=== PATIENT | female | born 1945 | race Two or more races ===

== ENCOUNTER 2017-07-27 11:45 | Outpatient (CLI) | payer OTHER | END 2017-07-27 14:23 | disposition home or self-care (01) | LOC: MAMO-SONO 11:45 | DX: Z12.31 Encounter for screening mammogram for malignant neoplasm of breast (principal); Z87.898 Personal history of other specified conditions ==

== ENCOUNTER 2017-08-10 11:40 | Outpatient (CLI) | payer OTHER | END 2017-08-10 11:46 | disposition home or self-care (01) | LOC: LAB 11:40 | DX: N39.0 Urinary tract infection, site not specified (principal); R82.79 Other abnormal findings on microbiological examination of urine ==

== ENCOUNTER 2017-08-10 12:37 | Outpatient (CLI) | payer OTHER | END 2017-08-10 17:13 | disposition home or self-care (01) | LOC: RAD 12:37 | DX: J45.998 Other asthma (principal) ==

== ENCOUNTER 2017-08-23 14:28 | Outpatient (CLI) | payer OTHER | END 2017-08-23 14:48 | disposition home or self-care (01) | LOC: SONOGRAMA 14:28 | DX: N17.9 Acute kidney failure, unspecified (principal) ==

== ENCOUNTER 2017-09-14 06:58 | Outpatient (CLI) | payer OTHER | END 2017-09-14 15:00 | disposition home or self-care (01) | LOC: LAB 06:58 | DX: D64.89 Other specified anemias (principal); N39.0 Urinary tract infection, site not specified; E11.65 Type 2 diabetes mellitus with hyperglycemia ==

== ENCOUNTER 2017-12-29 14:07 | Outpatient (CLI) | payer OTHER | END 2017-12-29 14:10 | disposition home or self-care (01) | LOC: RAD 14:07 | DX: J45.998 Other asthma (principal) ==

== ENCOUNTER 2018-08-24 14:54 | Outpatient (CLI) | payer OTHER | END 2018-08-24 15:57 | disposition home or self-care (01) | LOC: MAMO-SONO 14:54 | DX: Z12.31 Encounter for screening mammogram for malignant neoplasm of breast (principal); Z87.898 Personal history of other specified conditions; N63.10 Unspecified lump in the right breast, unspecified quadrant; N63.20 Unspecified lump in the left breast, unspecified quadrant ==

== ENCOUNTER → 2018-12-12 | Emergency (ER) | payer OTHER ==
[~2018-12-12] VITALS: Ht 160 cm; Wt 63.5 kg
== END | disposition designated cancer center or children's hospital (05) ==
LOC: ER 14:56
DX: I62.01 Nontraumatic acute subdural hemorrhage (principal); S19.89XA Other specified injuries of other specified part of neck, initial encounter; W18.09XA Striking against other object with subsequent fall, initial encounter; Y93.89 Activity, other specified; Y92.89 Other specified places as the place of occurrence of the external cause; Y99.8 Other external cause status

== ENCOUNTER 2018-12-24 15:26 | Outpatient (CLI) | payer OTHER | END 2018-12-24 15:37 | disposition home or self-care (01) | LOC: LAB 15:26 | DX: I62.00 Nontraumatic subdural hemorrhage, unspecified (principal) ==

== ENCOUNTER 2018-12-26 14:28 | Outpatient (CLI) | payer OTHER | END 2018-12-26 17:00 | disposition home or self-care (01) | LOC: MRI 14:28 | DX: S06.5X9A Traumatic subdural hemorrhage with loss of consciousness of unspecified duration, initial encounter (principal) | CPT/HCPCS: 70553; A9575 ==